=== PATIENT | female | born 1980 | race Caucasian/White ===

== ENCOUNTER 2017-01-22 13:31 | Emergency (ER) | payer OTHER ==
[2017-01-22 14:13] VITALS: BP 105/66
--- NOTE | 2017-01-22 14:23 | UC ---
Throat Pain/Nasal Eric HPI - HPI Summary HPI Summary: 7 days ago son was dx with both GAS and flu. Since then pt has had nasal congestion, mild ST, asthma symptoms, feeling crummy. No temps over 100F, vomiting, diarrhea, or rash. - History of Current Complaint Chief Complaint: UCGeneralIllness Stated Complaint: SORE THROAT BODYACHES COUGH Time Seen by Provider: 01/22/17 14:13 Hx Obtained From: Patient Hx Last Menstrual Period: Hysterectomy 2014 ?: No Onset/Duration: Gradual Onset, Lasting Days Severity: Mild Cough: Productive Associated Signs & Symptoms: Positive: Nasal Discharge. Negative: Hoarseness - Allergies/Home Medications Allergies/Adverse Reactions: Allergies Allergy/AdvReac Type Severity Reaction Status Date / Time Codeine Allergy Hives Verified 08/28/16 10:38 Erythromycin Allergy HIVES AND Verified 08/28/16 10:38 VOMITING Fluconazole [From Diflucan] Allergy Swelling Verified 08/28/16 10:38 Of Face,Lips,& Throat Sulfa Drugs Allergy ASTHMA Verified 08/28/16 10:38 ATTACKS ENVIRONMENTAL/SEASONAL Allergy Congestion Uncoded 08/28/16 10:38 ALLERGIES PMH/Surg Hx/FS Hx/Imm Hx Endocrine History Of: Denies: Diabetes, Thyroid Disease Cardiovascular History Of: Denies: Cardiac Disorders, Hypertension Respiratory History Of: Reports: Asthma - ON MEDICATION FOR- WILL BRING INHALERS , Bronchitis Denies: COPD GI/ History Of: Reports: Ulcer - IN COLON 6 YRS AGO - Surgical History Surgical History: Yes Surgery Procedure, Year, and Place: 1996-LEFT BUNIONECTOMY. 2012 REMOVAL OF LEFT OVARIAN CYST. hysterectomy benign mass removed from Left armpit - Family History Known Family History: Positive: Unknown - Social History Occupation: Employed Full-time Lives: With Family Alcohol Use: None Alcohol Amount: 1-2 WEEK Substance Use Type: None Smoking Status (MU): Never Smoked Tobacco Have You Smoked in the Last Year: No - Immunization History Most Recent Influenza Vaccination: 2016/2017 Most Recent Tetanus Shot: unknown - most likely needs to be updated. patient will contact primary Most Recent Pneumonia Vaccination: unk Review of Systems Constitutional: Fatigue Skin: Negative Eyes: Negative ENT: Sore Throat, Nasal Discharge Respiratory: Cough Cardiovascular: Negative Gastrointestinal: Negative Genitourinary: Negative Motor: Negative Neurovascular: Negative Musculoskeletal: Negative Neurological: Negative Psychological: Negative All Other Systems Reviewed And Are Negative: Yes Physical Exam Triage Information Reviewed: Yes Appearance: Well-Appearing, No Pain Distress, Well-Nourished Vital Signs: Initial Vital Signs Temp 99.5 F 01/22/17 14:03 Pulse 82 01/22/17 14:03 Resp 18 01/22/17 14:03 BP 105/66 01/22/17 14:03 Pulse Ox 97 01/22/17 14:03 Vital Signs Reviewed: Yes Eye Exam: Normal Eyes: Positive: Conjunctiva Clear ENT: Positive: Hearing grossly normal, Pharynx normal, Nasal congestion, TMs normal Dental Exam: Normal Neck exam: Normal Neck: Positive: Supple, Nontender, No Lymphadenopathy Respiratory Exam: Other - eric cough Respiratory: Positive: Normal breath sounds, No respiratory distress, No accessory muscle use Cardiovascular Exam: Normal Cardiovascular: Positive: RRR, No Murmur Musculoskeletal Exam: Normal Neurological Exam: Normal Psychological Exam: Normal Skin Exam: Normal Throat Pain/Nasal Course/Dx - Course Assessment/Plan: RST negative - Differential Dx/Diagnosis Provider Diagnoses: URI, likely viral Discharge - Discharge Plan Condition: Stable Disposition: HOME Referrals: Alicja Christensen MD [Primary Care Provider] -
== END 2017-01-22 15:05 | disposition home or self-care (01) ==
LOC: UCEAST 13:31
DX: J06.9 Acute upper respiratory infection, unspecified (principal); Z88.5 Allergy status to narcotic agent; Z88.1 Allergy status to other antibiotic agents; Z88.2 Allergy status to sulfonamides; Z91.018 Allergy to other foods
CPT/HCPCS: 87651; 99211; G0463